=== PATIENT | male | born 2000 | race Caucasian/White ===

== ENCOUNTER 2023-12-11 14:42 | Emergency (ER) | payer MEDICAID ==
[~2023-12-11] VITALS: Ht 175.3 cm; Wt 72.7 kg
[2023-12-11 14:55] LABS: BASOPHILS 0.3 % (0-2); EOSINOPHILS 1.1 % (0-6); HEMATOCRIT 41.9 % (35.0-50.0); HEMOGLOBIN 14.5 g/dL (12.0-18.0); LYMPHOCYTES 13.4 % (24-44); MCH 32.4 (27-36); MCHC 34.5 g/dl (30-36); MCV 93.8 fl (81-99); MONOCYTES 10.1 % (0-12); NEUTROPHILS 75.1 % (39-80); PLATELET COUNT 289 K/uL (140-440); RBC 4.46 M/ul (4.3-5.7); RDW 13.1 (10.5-15.0)
[2023-12-11] MEDS ORDERED: DEXTROSE 5% IV ONE (15:00)
[2023-12-11] MEDS ORDERED: LEVETIRACETAM IV ONE (15:00)
[2023-12-11 15:12] LABS: ALBUMIN 3.8 g/dL (3.4-5.0); ALBUMIN/GLOBULIN RATIO 1.19 (1.1-2.4); ANION GAP 11.1 (7-21); BILIRUBIN, TOTAL 0.3 ng/dL (0.2-1.0); BUN/CREATININE RATIO 13.27 (6.0-28.6); CREATININE, SERUM 1.13 mg/dL (0.70-1.30); POTASSIUM 4.1 mmol/L (3.5-5.1)
[2023-12-11] MEDS ORDERED: KEPPRA500 MG PO (15:39)
[2023-12-11 16:37] VITALS: BP 136/89
== END 2023-12-11 16:38 | disposition home or self-care (01) ==
LOC: ED 14:42
PROVIDERS: Emergency Medicine
DX: R56.9 Unspecified convulsions (principal)
CPT/HCPCS: 36415; 80053; 85025; 96365; 99284-25; J1953